=== PATIENT | male | born 1985 | race African-American/Black ===

== ENCOUNTER 2016-07-13 08:49 | Emergency (ER) | payer OTHER ==
[~2016-07-13] VITALS: Ht 162.6 cm; Wt 83.9 kg
[2016-07-13 08:50] VITALS: BP 169/76; TEMP 98
[2016-07-13 09:35] LABS: PLATELET COUNT 300 K/uL (142-355)
== END 2016-07-13 11:50 | disposition home or self-care (01) ==
LOC: ED 08:49
PROVIDERS: Specialist
DX: L03.213 Periorbital cellulitis (principal); H57.11 Ocular pain, right eye
CPT/HCPCS: 36415; 85027; 85651; 99283